=== PATIENT | female | born 1945 | race Caucasian/White ===

== ENCOUNTER 2021-06-04 18:46 | Emergency (ER) | payer BC ==
[~2021-06-04] VITALS: Ht 167.6 cm; Wt 98.4 kg
== END 2021-06-04 20:48 | disposition home or self-care (01) ==
LOC: ER 18:46
DX: T82.594A Other mechanical complication of infusion catheter, initial encounter (principal)
CPT/HCPCS: 99283

== ENCOUNTER → 2021-07-31 | Outpatient (CLI) | payer BC ==
[2021-08-01 11:02] LABS: Candida species (DNA Probe) Negative (NEGATIVE); G. vaginalis (DNA Probe) Negative (NEGATIVE); T. vaginalis (DNA Probe) Negative (NEGATIVE)
== END | disposition home or self-care (01) ==
LOC: LAB SHORT 15:56 → LAB 15:56
PROVIDERS: Obstetrics & Gynecology
DX: N89.8 Other specified noninflammatory disorders of vagina (principal)
CPT/HCPCS: 87480; 87510; 87660